=== PATIENT | female | born 2000 | race Caucasian/White ===

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

== ENCOUNTER 2022-08-25 13:49 | Emergency (ER) | payer BC, SELFPAY ==
[2022-08-25 13:51] VITALS: BP 131/83; PULSE 124; RESP 20; TEMP 36.7; O2SAT 99
--- NOTE | 2022-08-25 16:13 | W.ED.GENAD ---
Discharge Plan Disposition Patient Disposition: Home Condition: Improving Discharge Details Clinical Impression: Anxiety about health, Benign paroxysmal positional vertigo of right ear Primary Care Provider: Unknown,Unknown ED Provider: Nikolai Hilliard Home Meds and New Rx's Prescriptions: New meclizine 25 mg tablet 25 mg PO TID PRN (Reason: dizziness) Qty: 20 0RF ondansetron 4 mg tablet,disintegrating 4 mg PO Q8H PRN (Reason: nausea and vomiting) Qty: 10 0RF Continued magnesium oxide 500 mg tablet 500 mg PO DAILY riboflavin (vitamin B2) 100 mg tablet 100 mg PO BID tretinoin 0.05 % cream 1 applic topical QHS Qty: 20 1RF Rx Instructions: apply thin layer to face once a day at bedtime prochlorperazine maleate 5 mg tablet 5 mg PO TID PRN (Reason: headaches) Qty: 30 2RF Rx Instructions: Take every 8 hours for headaches. multivitamin [One Daily Multivitamin] Tablet 1 tab PO DAILY famotidine 10 mg tablet 20 mg PO BID Rx Instructions: take one tablet twice a day desogestrel-ethinyl estradiol [Apri] 0.15-0.03 mg Tablet 1 tab PO DAILY escitalopram oxalate [Lexapro] 5 mg Tablet 5 mg PO DAILY Discharge Instructions Instructions: Vertigo (ED), Anxiety (ED) Additional Instructions: Please avoid sudden movements and stay well-hydrated. Please take medication as needed for symptoms and return to the emergency department for any new or significant worsening of your symptoms. Otherwise follow-up with your primary care provider for recheck preferably in the next week if not fully improving. Referrals: Primary Care Provider [Outside] - 1 week Discharge Data Discharge Date/Time-TO BE ENTERED AT DEPARTURE: 08/25/22 17:57 Medical Decision Making Patient presenting to the emergency department for chief complaint of dizziness/vertigo. She states this has been intermittent for the past couple months but this morning it was severe. Patient denies any injury trauma concussion fever chills neck pain vomiting or focal neurological changes. Patient does state some associated anxiety due to severity of symptoms. Physical exam is unremarkable and shows normal cranial nerve function, normal peripheral nerve function, noted dizziness with patient turning her head to the right but no noted nystagmus or other symptoms. Did perform Zee maneuver with suspected peripheral vertigo of the right ear. This did help somewhat alleviate patient's symptoms but had some persistent so meclizine was also given. Patient reassessed and again states some improvement but still having significant anxiety about going home and having a return of symptoms. Did offer blood work and CT imaging which I do not feel at this time is 100% necessary given benign exam but discussed risk versus benefit with patient. After discussion of risk versus benefit with patient and family they decided that they would rather hold off on further evaluation given that the patient is improving. I agree that this is appropriate disposition. Discussed standard course of vertigo and that I was going to prescribe her Zofran and meclizine. This is somewhat reassuring to her but I will give her 1 dose of Ativan here before she leaves due to her severe anxiety. Discussed with patient return and follow-up precautions and did place patient on follow-up list to follow-up with primary care provider for reassessment for her vertigo. After discussion of diagnosis and plan of care patient has no further needs, questions, or concerns and states clear understanding to return to the emergency department for any worsening symptoms. This documentation was generated using [employer] dictation system, please disregard any oddities of phrase or misspellings. HPI General Mode of arrival: ambulatory. Date/Time Provider Initiated Documentation: 08/25/22 15:34. Limitations to Documentation: no limitations. Information obtained by: patient and RN notes reviewed. History of Present Illness 22 year old F presents to the emergency department with the chief complaint of Dizziness causing panic attacks, described as moderate and severe, Patient started experiencing this month(s) (2) and it has been intermittent. No relieving factors improve symptom(s), Movement worsens symptoms . Patient did receive the following treatments prior to arrival, none Related Data Home Medications Medication Instructions Recorded Confirmed prochlorperazine maleate 5 mg 5 mg PO TID PRN headaches #30 tabs 11/08/19 08/25/22 tablet magnesium oxide 500 mg tablet 500 mg PO DAILY 12/14/19 08/25/22 riboflavin (vitamin B2) 100 mg 100 mg PO BID 12/14/19 08/25/22 tablet multivitamin (One Daily 1 tab PO DAILY 06/17/20 07/30/21 Multivitamin tablet) tretinoin 0.05 % topical cream 1 applic topical QHS #20 grams 01/02/21 08/25/22 desogestrel 0.15 mg-ethinyl 1 tab PO DAILY 08/25/22 08/25/22 estradiol 0.03 mg tablet (Apri) escitalopram oxalate 5 mg tablet 5 mg PO DAILY 08/25/22 08/25/22 (Lexapro) famotidine 10 mg tablet 20 mg PO BID 08/25/22 08/25/22 meclizine 25 mg tablet 25 mg PO TID PRN dizziness #20 tabs 08/25/22 ondansetron 4 mg disintegrating 4 mg PO Q8H PRN nausea and 08/25/22 tablet vomiting #10 tabs Previous Rx's Medication Instructions Recorded prochlorperazine maleate 5 mg 5 mg PO TID PRN headaches #30 tabs 11/08/19 tablet tretinoin 0.05 % topical cream 1 applic topical QHS #20 grams 01/02/21 meclizine 25 mg tablet 25 mg PO TID PRN dizziness #20 tabs 08/25/22 ondansetron 4 mg disintegrating 4 mg PO Q8H PRN nausea and 08/25/22 tablet vomiting #10 tabs Allergies Allergy/AdvReac Type Severity Reaction Status Date / Time No Known Allergies Allergy Verified 08/25/22 15:40 General Stated Complaint: GenMedical SADA: 3 Review of Systems Constitutional Constitutional: Denies chills, Denies fever(s), Denies headache(s) and Reports malaise Eyes Eyes: Reports system reviewed and no additional complaints, except as documented and Denies change in vision ENT Ears, Nose, Mouth, and Throat: Reports vertigo, Reports dizziness, Denies headache(s) and Reports tinnitus Cardiovascular Cardiovascular: Denies chest pain, Denies lightheadedness and Denies dyspnea Respiratory Respiratory: Denies cough and Denies dyspnea Gastrointestinal Gastrointestinal: Reports nausea Genitourinary Genitourinary: Denies difficulty voiding, Denies dysuria and Denies urinary incontinence Neurologic Neurologic: Reports vertigo, Reports dizziness and Denies headache(s) PFSH All Active Problems (Updated 08/25/22 @ 17:47 by Nikolai Hilliard NP) Anxiety about health (Acute) Benign paroxysmal positional vertigo of right ear (Acute) Neck pain (Acute) Constipation (Acute) GERD (gastroesophageal reflux disease) (Chronic) Acne (Acute) Irritability (Acute) Migraine headache without aura (Acute) Daily headache (Acute) Problems with learning (Acute) Routine child health exam (Acute 11/10/12) Pediatric body mass index (BMI) of 85th percentile to less than 95th percentile for age (Acute 07/18/15) Polydipsia (Acute 07/03/14) FHX + PATERNAL RELATIVES WITH DIABETES INSIPIDUS 09-07-14 - WATER DEPREVATION TEST [facility] [place] DIABETES INSIPIDUS RULED OUT Polyuria (Acute 07/03/14) Family History Mother Healthy adolescent on routine physical examination Father Smoker Other Blindness due to degeneration of eye MGF, MGGM Diabetes insipidus 1/2 sister and other paternal relatives Hyperlipidemia MGF Asthma pat cousin Social History (Updated 07/30/21 @ 13:23 by Sandra Gomez RN) Smoking/Tobacco Use Status: Never Second Hand Exposure: Yes Smoking risk assessment performed?: Yes Alcohol Intake: never Drug use: Never Substance use type: does not use Adopted: No Foster care: No Pets and animals: Yes Pets and animals: dog(s) Current gender identity: female What type of physical activity do you participate in: none Seatbelt use: always Helmet use: Yes Helmet use: always Water heater temp set <120 deg: Yes Fire extinguisher in home: Yes Carbon monox detector in home: Yes Firearms in home: Yes Firearms unloaded and locked: Yes Do you feel safe at home: Yes Do you feel safe in your relationship?: Yes Additional Social history: Lives at both Mom and Dads Exam Const General: cooperative, healthy appearing, well groomed and anxious Orientation: alert, awake and oriented x3 HENMT Head: normal to inspection Ears: hearing grossly normal bilaterally and TM's normal bilaterally Mouth: oral mucosae normal and moist mucous membranes Throat: posterior oropharynx normal Eyes Visual Lynn: normal visual lynn by confrontation Alignment and Position: alignment normal Periorbital: periorbital findings normal Eyelids: eyelids normal Sclera: sclerae normal Cornea: corneas normal Pupils: PERRL EOM: EOM intact bilaterally Neck Neck: normal visual inspection, full ROM, no lymphadenopathy and no meningeal signs Resp Effort & Inspection: normal respiratory effort and able to speak in complete sentences Auscultation: clear to auscultation bilaterally Cardio Rate: regular rate Rhythm: regular rhythm Heart Sounds: S1 normal and S2 normal Neuro General: patient alert, patient awake, patient oriented x3, gait normal, tone normal, moves all extremities, CN's II-XI intact bilaterally and not confused Cognition: normal cognition Speech: speech normal Motor: muscle tone normal throughout, strength 5/5 throughout, no pronator drift, no movement abnormalities noted and no fasciculations Sensory Exam: no sensory deficits noted Coordination: Does not sway with eyes open Psych Appearance: grossly normal Speech and Movement: speech and movement normal Mood: anxious mood Affect: anxious affect Attitude: cooperative and avoids eye contact Thought Process: normal Thought Content: normal Insight: insight good Judgment: judgment good Course Vital Signs Vital signs: Vital Signs Temperature 36.7 C 08/25/22 13:51 Pulse 124 H 08/25/22 13:51 Respiratory Rate 20 08/25/22 13:51 Blood Pressure 131/83 08/25/22 13:51 Pulse Oximetry 99 08/25/22 13:51 Temperature 36.7 C 08/25/22 13:51 Temperature Source Tympanic 08/25/22 13:51 Pulse 124 H 08/25/22 13:51 Respiratory Rate 20 08/25/22 13:51 Respiratory Effort Normal 08/25/22 13:53 Respiratory Depth Normal 08/25/22 13:53 Respiratory Pattern Normal 08/25/22 13:53 Blood Pressure 131/83 08/25/22 13:51 Pulse Oximetry 99 08/25/22 13:51 Oxygen Delivery Method Room Air 08/25/22 13:51 Oxygen Flow Rate 0 08/25/22 13:51 Pain Level 3 08/25/22 13:51
[2022-08-25] MEDS: Meclizine 25 MG TAB PO (16:33)
[2022-08-25 16:41] LABS: Bilirubin Negative (Negative); Blood Negative (Negative); Clarity Clear (Clear); Glucose Negative (Negative); Ketones 80 mg/dL (Negative); Leukocyte Esterase Negative (Negative); Nitrite Negative (Negative); Specific Gravity 1.015 (1.005-1.025); Urobilinogen 0.2 mg/dL (Up to 0.2)
[2022-08-25] MEDS: LORazepam 1 MG TAB PO (17:50)
[2022-08-25 17:54] VITALS: BP 130/92; PULSE 92; RESP 16; O2SAT 100
== END 2022-08-25 17:57 | disposition home or self-care (01) ==
PROVIDERS: Emergency Provider Nurse Practitioner Family
DX: H81.11 Benign paroxysmal vertigo, right ear (principal)
CPT/HCPCS: 81025; 99283; 81003

== ENCOUNTER 2023-11-24 18:56 | Outpatient (REF) | payer BC, SELFPAY ==
--- NOTE | 2023-11-24 17:15 | PAPFT_PTH ---
PATIENT: Desiree Scott LOC: [facility]#:[id number] AGE/SX: 23/F ROOM: RE11/24/[address]: Leti Berg : 2000 BED: DIS: 11/24/2023 SPEC #: [id number] RECD: 11/25/23 12:56 STATUS: EDWARD RECrystal #: [id number] KHALIDA: 11/24/23 17:[address]: Leti Berg DEPT: [facility] Cytology RECD BY: Mirella Hearn ENTERED: 11/25/23 12:56 SP TYPE: PAPFT KAYE DR: Unknown,Unknown Tissues: 1 - CX/ENDOCX FOR PAP SMEARS Procedures: PAP THIN PREP/[facility] Screening Comments: [id number] (GENIEIA/JESSICA)
[2023-11-26 13:54] LABS: Chlamydia Result Negative (Negative); GC Result Negative (Negative)
== END 2023-11-24 18:57 | disposition home or self-care (01) ==
LOC: NCHCN 18:56
PROVIDERS: Visit Provider Nurse Practitioner Family
DX: Z12.4 Encounter for screening for malignant neoplasm of cervix (principal)
CPT/HCPCS: 87491; 87591; 88142